=== PATIENT | female | born 1945 | race Hispanic/Latino ===

== ENCOUNTER → 2017-05-02 | Day surgery (SDC) | payer MEDICARE, OTHER ==
[2017-05-01 12:16] LABS: BASOPHILS # (AUTO) 0.1 (0.0-0.1); BASOPHILS % 0.5 % (0.0-1.0); EOSINOPHILS # (AUTO) 0.2 (0.0-0.4); EOSINOPHILS % 1.8 % (0.0-6.0); HEMOGLOBIN 14.2 g/dL (12.0-16.0); LYMPHOCYTES # (AUTO) 3.2 (1.0-3.2); LYMPHOCYTES % 31.3 % (18.0-39.1); MEAN CORPUSCULAR HEMOGLOBIN 29.6 pg (28-32); MEAN CORPUSCULAR HGB CONC 30.9 g/dL (31-35); MEAN CORPUSCULAR VOLUME 95.8 fL (81-99); MONOCYTES # (AUTO) 0.7 (0.2-0.8); MONOCYTES % 6.6 % (4.4-11.3); NEUTROPHILS # (AUTO) 6.2 (2.1-6.9); NEUTROPHILS % 59.6 % (38.7-80.0); PLATELET COUNT 318 x10e3/uL (140-360); RED CELL DISTRIBUTION WIDTH 14.6 % (11.7-14.4)
[2017-05-01 12:24] LABS: INR 1.01; PROTHROMBIN TIME 12.5 seconds (11.9-14.5)
[2017-05-01 12:32] LABS: ALANINE AMINOTRANSFERASE 20 IU/L (0-55); ALBUMIN 3.3 g/dL (3.5-5.0); ALBUMIN/GLOBULIN RATIO 0.8 (0.8-2.0); ALKALINE PHOSPHATASE 112 IU/L (40-150); ANION GAP 13.3 mmol/L (8-16); BLOOD UREA NITROGEN 18 mg/dL (7-26); BUN/CREATININE RATIO 25 (6-25); CALCIUM 9.5 mg/dL (8.4-10.2); CARBON DIOXIDE 31 mmol/L (22-29); CHLORIDE 102 mmol/L (98-107); CHOL/HDL RATIO 2.9 (3.0-3.6); CHOLESTEROL 147 MD/DL (0-199); CREATININE, SERUM 0.73 mg/dL (0.57-1.11); EST GLOMERULAR FILTRATION RATE > 60 ML/MIN (60-); GLUCOSE 118 mg/dL (74-118); HDL CHOLESTEROL 51 MG/DL (40-60); LDL CHOLESTEROL 75 MG/DL (60-130); POTASSIUM 5.3 mmol/L (3.5-5.1); SODIUM 141 mmol/L (136-145); TRIGLYCERIDES 105 MG/DL (0-149)
[~2017-05-02] VITALS: Ht 152.4 cm; Wt 117.0 kg
[~2017-05-02] MED LIST: ACETAMINOPHEN 325 MG TAB PRN; AMLODIPINE BESYL5 MG PO; ASPIRIN 325 MG TAB ONE; ASPIRIN 325 MG TAB PO ONE; ASPIRIN81 MG PO; FENTANYL CITRATE/PF 100MCG/2 ML INJ IV PRN; FENTANYL CITRATE/PF 100MCG/2 ML INJ ONE; FUROSEMIDE40 MG PO; GLIMEPIRIDE2 MG PO; HEPARIN SOD (PORCINE) 1000 UNIT/ML 30ML ONE; HEPARIN SOD/SOD CHLORIDE 2,000 ML ONE; IOPAMIDOL 370 MG/ML 200 ML INFUS..BTL INJ ONE; LIDOCAINE HCL 2% LOCAL 20 ML VIAL ONE; LOSARTAN POTAS100 MG PO; MELOXICAM7.5 MG PO; METFORMIN HCL500 MG PO; METOPROLOL SUCC25 MG PO; MIDAZOLAM HCL 2 MG/2 ML VIAL IV PRN; MIDAZOLAM HCL 2 MG/2 ML VIAL ONE; NITROGLYCERIN/D5W 200 MCG/ML 0 ML ONE; POTASSIUM CHLO10 ME1 PO; SODIUM CHLORIDE 0.9% 1000ML 1,000 ML ONE; VERAPAMIL HCL 2.5 MG/ML 2 ML VIAL ONE
[2017-05-02 09:38] VITALS: BP 141/67
--- NOTE | 2017-05-02 13:23 | Operative Report ---
DATE OF PROCEDURE: INDICATIONS 1. Chest pain with abnormal stress test concerning for ischemia with systolic heart failure noted on abnormal stress test results. 2. Carotid artery disease moderate to severe by Doppler ultrasound with symptoms concerning for TIA. PROCEDURE PERFORMED 1. Left heart catheterization. 2. Selective coronary angiography x2. 3. Left ventriculogram. 4. Aortic arch aortography. 5. Catheter positioned in aortic arch. 6. Selective extracranial carotid artery angiography, bilateral. 7. Nonselective extracranial vertebral angiography, bilateral. 8. Right common femoral artery 6-Turkish Angio-Seal closure. PROCEDURE COMPLICATIONS: None. ESTIMATED BLOOD LOSS: Less than 15 mL. PROCEDURE SUMMARY: After consent was obtained, the patient was prepped and draped in a sterile fashion, and the right femoral site was locally infiltrated with 2% Lidocaine. Access was obtained using micropuncture kit and a short 6-Turkish sheath was placed. All catheters were railed into the proximal ascending aorta using a leading J wire. The 6-Turkish catheters were used except for the carotid angiography which was performed with a 5-Turkish Sim 1 catheter. The following catheters were used: 1. For the left main, JL4, JL3.5, AL1, AR2 MOD, and thick catheter were used. Engagement of the left main was successfully performed initially with a AR2 MOD, but thereafter better aligned with thick catheter. 2. Right coronary artery was engaged with a JR4. The aortic valve was crossed and hemodynamic measurements obtained with a JR4. Pigtail catheter was used for aortic arch aortography. FINDINGS NOTED: LV gram was performed and the following findings were noted: 1. 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 From the innominate artery, the right subclavian artery arises which gives rise to patent antegrade flow of right vertebral artery. Right common carotid artery also accessed from the innominate artery. It has luminal irregularities and the bulb has luminal irregularities. The right external carotid artery has luminal irregularities. The right internal carotid has moderate tortuosity in its visible portion and has 30% stenosis in the mid to distal portion. 2. Left common carotid artery arises from aortic arch has luminal irregularities shows this is the left carotid bulb and left external carotid artery. The left internal carotid artery has 30% mixed stenosis and is overall very tortuous. 3. Left subclavian artery from aortic arch gives rise to patent and antegrade flow of left vertebral artery. Of note, the innominate artery at its ostium seems to have an area of focal 30% stenosis. 4. LV pressure were 162/16 with end diastolic pressure of 32. 5. Aortic pressure was 162/71. 6. LV gram reveals hyperdynamic left ventricular systolic function with LVEF more than 70%. 7. The left main is large in caliber with lumina irregularities giving rise to an LAD and a circumflex. 8. The LAD has luminal irregularities and gives rise to 2 diagonals and multiple septal perforators. 9. The circumflex gives rise to 3 obtuse marginal and has liminal irregularities. 10. The right coronary artery is dominant, has liminal irregularities gives 3 RV marginals and terminal RPDA. This is a co-dominant RCA. CONCLUSION: 1. No evidence of obstructive coronary artery disease with luminal irregularities throughout the coronary tree. 2. Mild carotid artery disease with predominant vessel tortuosity likely explaining the elevated Doppler velocities. 3. Elevated LVEDP of 32 with hyperdynamic left ventricular systolic function. RECOMMENDATIONS: Bedrest starting tomorrow, resume diuretics. Hold potassium as patient's potassium was mildly elevated at 5.3, so hold additional potassium supplementation. Resume home cardiovascular medications, however, hold metformin for the following 48 hours postprocedure. Aspirin, statin, further recommendations to follow. Patient advised on follow up in 1 to 2 weeks in the office. Job#: [id number] JUAN ALBERTO
== END | disposition home or self-care (01) ==
LOC: CATH LAB 08:50
PROVIDERS: ATTEND Internal Medicine Cardiovascular Disease
DX: I25.119 Atherosclerotic heart disease of native coronary artery with unspecified angina pectoris (principal); I65.23 Occlusion and stenosis of bilateral carotid arteries; R94.39 Abnormal result of other cardiovascular function study; I77.1 Stricture of artery; I11.0 Hypertensive heart disease with heart failure; I50.20 Unspecified systolic (congestive) heart failure; E78.5 Hyperlipidemia, unspecified; R09.89 Other specified symptoms and signs involving the circulatory and respiratory systems; E66.01 Morbid (severe) obesity due to excess calories; R60.0 Localized edema; Z01.810 Encounter for preprocedural cardiovascular examination; Z01.812 Encounter for preprocedural laboratory examination; Z68.43 Body mass index [BMI] 50.0-59.9, adult; Z82.49 Family history of ischemic heart disease and other diseases of the circulatory system
CPT/HCPCS: 36222; 36415; 77002; 80053; 80061; 85025; 85610; 93005; 93458; C1769; C1887; J1644; J2001; J2250; J7030; Q9967; 36140; 93452

== ENCOUNTER 2020-01-09 11:37 | Emergency (ER) | payer MEDICARE, OTHER ==
[~2020-01-09] VITALS: Ht 152.4 cm; Wt 117.0 kg
[~2020-01-09 11:37] MED LIST changes: -ACETAMINOPHEN 325 MG TAB PRN; -ASPIRIN 325 MG TAB ONE; -ASPIRIN 325 MG TAB PO ONE; -FENTANYL CITRATE/PF 100MCG/2 ML INJ IV PRN; -FENTANYL CITRATE/PF 100MCG/2 ML INJ ONE; -HEPARIN SOD (PORCINE) 1000 UNIT/ML 30ML ONE; -HEPARIN SOD/SOD CHLORIDE 2,000 ML ONE; -IOPAMIDOL 370 MG/ML 200 ML INFUS..BTL INJ ONE; -LIDOCAINE HCL 2% LOCAL 20 ML VIAL ONE; -MIDAZOLAM HCL 2 MG/2 ML VIAL IV PRN; -MIDAZOLAM HCL 2 MG/2 ML VIAL ONE; -NITROGLYCERIN/D5W 200 MCG/ML 0 ML ONE; -SODIUM CHLORIDE 0.9% 1000ML 1,000 ML ONE; -VERAPAMIL HCL 2.5 MG/ML 2 ML VIAL ONE
[2020-01-09 12:12] LABS: BASOPHILS % 0.4 % (0.0-1.0); EOSINOPHILS # (AUTO) 0.2 (0.0-0.4); EOSINOPHILS % 2.7 % (0.0-6.0); HEMATOCRIT 40.9 % (34.2-44.1); HEMOGLOBIN 13.3 g/dL (12.0-16.0); LYMPHOCYTES # (AUTO) 3.1 (1.0-3.2); LYMPHOCYTES % 37.5 % (18.0-39.1); MEAN CORPUSCULAR HEMOGLOBIN 31.1 pg (28-32); MEAN CORPUSCULAR HGB CONC 32.5 g/dL (31-35); MEAN CORPUSCULAR VOLUME 95.6 fL (81-99); MONOCYTES # (AUTO) 0.7 (0.2-0.8); NEUTROPHILS # (AUTO) 4.2 (2.1-6.9); NEUTROPHILS % 51.2 % (38.7-80.0); PLATELET COUNT 217 x10e3/uL (140-360); RED BLOOD COUNT 4.28 x10e6/uL (3.6-5.1); RED CELL DISTRIBUTION WIDTH 13.2 % (11.7-14.4)
[2020-01-09 12:24] LABS: ALANINE AMINOTRANSFERASE 18 IU/L (0-55); ALBUMIN 3.5 g/dL (3.5-5.0); ALBUMIN/GLOBULIN RATIO 1.1 (0.8-2.0); ALKALINE PHOSPHATASE 90 IU/L (40-150); ANION GAP 14.3 mmol/L (8-16); BLOOD UREA NITROGEN 14 mg/dL (7-26); BUN/CREATININE RATIO 20 (6-25); CALCIUM 8.9 mg/dL (8.4-10.2); CARBON DIOXIDE 30 mmol/L (22-29); CHLORIDE 99 mmol/L (98-107); CREATININE, SERUM 0.69 mg/dL (0.57-1.11); EST GLOMERULAR FILTRATION RATE > 60 ML/MIN (60-); GLUCOSE 124 mg/dL (74-118); POTASSIUM 4.3 mmol/L (3.5-5.1); SODIUM 139 mmol/L (136-145)
[2020-01-09 12:39] LABS: CLARITY,URINE CLEAR (CLEAR); COLOR,URINE YELLOW (YELLOW); LEUKOCYTE ESTERASE ,URINE NEGATIVE (NEGATIVE); NITRITE,URINE NEGATIVE (NEGATIVE); PROTEIN,URINE DIPSTICK NEGATIVE (NEGATIVE)
[2020-01-09 12:40] LABS: BILIRUBIN,URINE NEGATIVE (NEGATIVE); KETONES,URINE NEGATIVE (NEGATIVE); URINE UROBILINOGEN 0.2 mg/dL (0.2 - 1)
[2020-01-09 12:41] LABS: BACTERIA,URINE RARE /HPF; EPITHELIAL CELLS,URINE FEW /LPF; RBC,URINE 0-5 /HPF (0-5); WBC,URINE (MAN) 0-5 /HPF (0-5)
[2020-01-09] MEDS ORDERED: HYDROCODONE/APAP 5MG-325MG TAB PO ONE (13:00)
[2020-01-09] MEDS ORDERED: ULTRAM50 MG PO (15:39)
[2020-01-09] MEDS ORDERED: GABAPENTIN100 MG PO (15:39)
[2020-01-09] MEDS ORDERED: LIDOCAINE 4% PATCH TP SCH (16:00)
== END 2020-01-09 16:08 | disposition home or self-care (01) ==
LOC: ER 13:00
DX: R10.31 Right lower quadrant pain (principal); E11.65 Type 2 diabetes mellitus with hyperglycemia; I10 Essential (primary) hypertension; E78.5 Hyperlipidemia, unspecified
CPT/HCPCS: 36415; 74176; 80053; 81001; 85025; 99284

== ENCOUNTER → 2024-01-14 | Day surgery (SDC) | payer MEDICARE ==
[2024-01-11 11:17] LABS: BASOPHILS % 0.3 % (0.0-1.0); EOSINOPHILS # (AUTO) 0.1 (0.0-0.4); EOSINOPHILS % 0.7 % (0.0-6.0); HEMOGLOBIN 12.4 g/dL (12.0-16.0); LYMPHOCYTES # (AUTO) 2.3 (1.0-3.2); LYMPHOCYTES % 26.2 % (18.0-39.1); MEAN CORPUSCULAR HEMOGLOBIN 30.8 pg (28-32); MEAN CORPUSCULAR HGB CONC 31.8 g/dL (31-35); MEAN CORPUSCULAR VOLUME 96.8 fL (81-99); MONOCYTES # (AUTO) 0.6 (0.2-0.8); MONOCYTES % 6.5 % (4.4-11.3); NEUTROPHILS # (AUTO) 5.9 (2.1-6.9); NEUTROPHILS % 66.1 % (38.7-80.0); PLATELET COUNT 251 x10e3/uL (140-360); RED BLOOD COUNT 4.03 x10e6/uL (3.6-5.1); RED CELL DISTRIBUTION WIDTH 12.7 % (11.7-14.4); WHITE BLOOD COUNT 8.94 x10e3/uL (4.8-10.8)
[2024-01-11 11:44] LABS: ALBUMIN 3.5 g/dL (3.5-5.0); BILIRUBIN,TOTAL 0.5 mg/dL (0.2-1.2); CALCIUM 9.6 mg/dL (8.4-10.2); CREATININE, SERUM 0.71 mg/dL (0.57-1.11); TOTAL PROTEIN 7.1 g/dL (6.5-8.1)
[~2024-01-14] MED LIST changes: +ACETAMINOPHEN 1000 MG/100 ML IV PRN; +ASPIRIN 325 MG TAB PO SCH; +CELECOXIB 100 MG CAP PO SCH; +DIPHENHYDRAMINE HCL INJ 50 MG/ML VIAL IV PRN; +DOCUSATE SODIUM 100 MG CAP PO PRN; +FENTANYL CITRATE/PF 100MCG/2 ML INJ ONE; +GABAPENTIN100 MG PO; +HYDROCODONE/APAP 5MG-325MG TAB PO PRN; +HYDROCODONE/APAP 7.5MG-325MG 1 EA TAB ONE; +MIDAZOLAM HCL 2 MG/2 ML VIAL ONE; +MOUNJARO7.5 MG/0.5 SC; +MULTI-VITAMIN1 EACH PO; +ONDANSETRON HCL INJ 2MG/ML 2ML 2 MG/ML VIAL IV PRN; +ONDANSETRON HCL INJ 2MG/ML 2ML 2 MG/ML VIAL ONE; +PANTOPRAZOLE SO40 MG PO; +ROPIVACAINE/EPI/CLONIDINE/KET 50 ML SYRINGE INJ ONE; +SODIUM CHLORIDE 0.9% 1000ML 1,000 ML IV SCH; +SODIUM CHLORIDE 0.9% 500ML 500 ML ONE; +TRANEXAMIC ACID 20 ML ONE; +ULTRAM50 MG PO; +Vancomycin IV 500 MG ONE
[2024-01-14 09:51] VITALS: TEMP 97.7
[2024-01-14] MEDS: CEFAZOLIN SODIUM 2 GM ONE (09:55)
[2024-01-14] MEDS: LACTATED RINGER'S 1,000 ML ONE (09:55)
[2024-01-14] MEDS: DEXAMETHASONE SOD PHOS 10 MG/1 ML VIAL ONE (09:56)
[2024-01-14] MEDS: GABAPENTIN 300 MG CAP ONE (09:56)
[2024-01-14] MEDS: CELECOXIB 200 MG CAP ONE (09:56)
[2024-01-14] MEDS: HYDROCODONE/APAP 7.5MG-325MG 1 EA TAB PO PRN (10:37)
[2024-01-14 12:45] VITALS: BP 157/72; PULSE 60; RESP 18; O2SAT 99
== END | disposition home health service (06) ==
LOC: OR 07:10
PROVIDERS: ATTEND Specialist
DX: M17.12 Unilateral primary osteoarthritis, left knee (principal); M65.862 Other synovitis and tenosynovitis, left lower leg; E11.9 Type 2 diabetes mellitus without complications; I10 Essential (primary) hypertension; G89.29 Other chronic pain; E66.01 Morbid (severe) obesity due to excess calories; Z01.810 Encounter for preprocedural cardiovascular examination; Z01.812 Encounter for preprocedural laboratory examination; Z01.818 Encounter for other preprocedural examination; Z79.899 Other long term (current) drug therapy; Z79.84 Long term (current) use of oral hypoglycemic drugs; Z68.41 Body mass index [BMI] 40.0-44.9, adult
CPT/HCPCS: 27447; 36415; 71046; 73560; 80053; 85025; 86850; 86900; 93005; 97116; 97161; 97530; C1713 ×2; C1776 ×3; J0690; J1100; J2250; J2795; J3010; J3370; J7040; J7121; J2405

== ENCOUNTER → 2024-06-02 | Day surgery (SDC) | payer MEDICARE ==
[2024-05-30 13:12] LABS: BASOPHILS % 0.2 % (0.0-1.0); EOSINOPHILS % 0.2 % (0.0-6.0); HEMATOCRIT 36.9 % (34.2-44.1); HEMOGLOBIN 12.3 g/dL (12.0-16.0); LYMPHOCYTES # (AUTO) 1.5 (1.0-3.2); LYMPHOCYTES % 17.8 % (18.0-39.1); MEAN CORPUSCULAR HEMOGLOBIN 29.9 pg (28-32); MEAN CORPUSCULAR HGB CONC 33.3 g/dL (31-35); MEAN CORPUSCULAR VOLUME 89.6 fL (81-99); MONOCYTES # (AUTO) 0.5 (0.2-0.8); MONOCYTES % 5.9 % (4.4-11.3); NEUTROPHILS # (AUTO) 6.4 (2.1-6.9); NEUTROPHILS % 75.5 % (38.7-80.0); PLATELET COUNT 304 x10e3/uL (140-360); RED BLOOD COUNT 4.12 x10e6/uL (3.6-5.1); RED CELL DISTRIBUTION WIDTH 13.4 % (11.7-14.4); WHITE BLOOD COUNT 8.45 x10e3/uL (4.8-10.8)
[2024-05-30 13:46] LABS: ANION GAP 13.2 mmol/L (8-16); CALCIUM 9.3 mg/dL (8.4-10.2); CREATININE, SERUM 0.74 mg/dL (0.57-1.11); POTASSIUM 4.2 mmol/L (3.5-5.1)
[~2024-06-02] MED LIST changes: +ACETAMINOPHEN 1000 MG/100 ML 100 ML IV ONE; +BUPIVACAINE/EPI 0.5% 30ML SDV-MPF INJ ONE; +DEXAMETHASONE SOD PHOS INJ 4 MG/ML SDV ONE; -HYDROCODONE/APAP 7.5MG-325MG 1 EA TAB ONE; +HYDROCODONE/APAP 7.5MG-325MG 1 EA TAB PO PRN; +LABETALOL HCL 5 MG/ML 20ML VIAL ONE; +LIDOCAINE HCL 2% LOCAL INJ 5 ML SDV VIAL INJ ONE; -MIDAZOLAM HCL 2 MG/2 ML VIAL ONE; +PHENYLEPHRINE HCL 1% 10 MG/ML VIAL ONE; +PROPOFOL IV EMULSION 10 MG/ML 20 ML VIAL ONE; +SEVOFLURANE INHAL SOLN 250 ML PEN BTL ONE; -SODIUM CHLORIDE 0.9% 500ML 500 ML ONE; +TRANEXAMIC ACID 1,000 MG/10 ML ML ONE; -TRANEXAMIC ACID 20 ML ONE; -Vancomycin IV 500 MG ONE
[2024-06-02] MEDS: CEFAZOLIN SODIUM 2 GM ONE (09:26)
[2024-06-02] MEDS: GABAPENTIN 300 MG CAP ONE (09:27)
[2024-06-02] MEDS: LACTATED RINGER'S 1,000 ML ONE (09:27)
[2024-06-02] MEDS: CELECOXIB 200 MG CAP ONE (09:27)
[2024-06-02] MEDS: DEXAMETHASONE SOD PHOS 10 MG/1 ML VIAL ONE (09:28)
[2024-06-02 14:45] VITALS: BP 140/76; PULSE 70; RESP 16; O2SAT 97
[2024-06-02] MEDS: HYDROCODONE/APAP 7.5MG-325MG 1 EA TAB ONE (15:10)
== END | disposition home health service (06) ==
LOC: OR 07:54
PROVIDERS: ATTEND Specialist
DX: M17.11 Unilateral primary osteoarthritis, right knee (principal); Z96.652 Presence of left artificial knee joint; E11.9 Type 2 diabetes mellitus without complications; I10 Essential (primary) hypertension; R00.1 Bradycardia, unspecified; E66.9 Obesity, unspecified; K21.9 Gastro-esophageal reflux disease without esophagitis; Z01.812 Encounter for preprocedural laboratory examination; Z79.82 Long term (current) use of aspirin; Z79.84 Long term (current) use of oral hypoglycemic drugs; Z79.85 Long-term (current) use of injectable non-insulin antidiabetic drugs; Z79.899 Other long term (current) drug therapy
CPT/HCPCS: 27447; 36415 ×2; 73560; 80048; 82948; 85025; 86850; 86900; 97116; 97161; 97530; C1713 ×2; C1776 ×3; J0131; J1100 ×2; J2003; J2405; J2704; J3010; J3490; J7121; J2371